=== PATIENT | female | born 1980 | race Hispanic/Latino ===

== ENCOUNTER 2017-09-24 08:40 | Emergency (ER) | payer MEDICAID, OTHER ==
[~2017-09-24 08:40] MED LIST: BLOO-733 MC; BLOO1EAC70 MC; INSU100I4 SQ; ISOP1TOW MC; METF500T7 PO; METO10TA41 PO; PANT40TA PO; [UNRECOGNIZED DRUG - CODE] MC; [UNRECOGNIZED DRUG - CODE] MC
[2017-09-24 09:12] LABS: BASOPHILS % (AUTO) 0.5 % (0.0-5.0); EOSINOPHILS % (AUTO) 0.1 % (0.0-8.0); HEMATOCRIT 39.9 % (36-48); LYMPHOCYTES % (AUTO) 24.4 % (21.0-51.0); MEAN CORPUSCULAR HEMOGLOBIN 30.7 pg (27.0-33.0); MEAN CORPUSCULAR HGB CONC 35.5 g/dL (32.0-36.0); MEAN CORPUSCULAR VOLUME 86.7 fL (79-99); MONOCYTES % (AUTO) 8.7 % (3.0-13.0); NEUTROPHILS % (AUTO) 66.3 % (40.0-77.0); PLATELET COUNT (AUTO) 259 K/uL (130-400); RED CELL DISTRIBUTION WIDTH 12.1 % (11.0-15.5); WHITE BLOOD COUNT (AUTO) 8.8 K/uL (4.8-10.8)
[2017-09-24 09:29] LABS: CREATININE 0.5 mg/dL (0.5-1.5); POTASSIUM 3.3 mmol/L (3.5-5.1)
[2017-09-24 09:34] LABS: ALBUMIN 3.7 g/dL (3.5-5.0); BILIRUBIN,DIRECT 0.1 mg/dL (0.0-0.3); BILIRUBIN,TOTAL 0.5 mg/dL (0.2-1.0); TOTAL PROTEIN, SERUM 7.3 g/dL (6.0-8.3)
[2017-09-24 09:40] LABS: ABG BASE EXCESS 2.2 mmol/L (-2.0-3.0); ABG HCO3 26.3 mmol/L (21.0-28.0); ABG OXYGEN SATURATION 92.6 % (95.0-99.0); ABG PCO2 40 mmHg (32-45)
[2017-09-24] MEDS ORDERED: ONDANSETRON HCL MDV 20ML 2 MG/ML VIAL ONE (09:41)
[2017-09-24] MEDS ORDERED: PROMETHAZINE HCL 25 MG/ML 1ML AMPULE IM ONE (10:32)
[2017-09-24 11:23] LABS: APPEARANCE,URINE Clear (CLEAR); BILIRUBIN,URINE Negative (NEGATIVE); COLOR,URINE Yellow (YELLOW); GLUCOSE, URINE (UA) >=1000 mg/dL (NEGATIVE); KETONES,URINE 40 mg/dL (NEGATIVE); LEUKOCYTE ESTERASE ,URINE Trace (NEGATIVE); NITRATE,URINE Negative (NEGATIVE); OCCULT BLOOD,URINE Negative (NEGATIVE); PROTEIN,URINE Negative (NEGATIVE); UROBILINOGEN,URINE 0.2 mg/dL (0.2-1.0)
[2017-09-24 11:30] LABS: AMPHET/METH SCREEN,URINE NEGATIVE (NEGATIVE); BARBITURATE SCREEN, URINE NEGATIVE (NEGATIVE); BENZODIAZEPINES SCREEN,URINE NEGATIVE (NEGATIVE); CANNABINOID SCREEN,URINE NEGATIVE (NEGATIVE); COCAINE SCREEN,URINE NEGATIVE (NEGATIVE); OPIATE SCREEN,URINE NEGATIVE (NEGATIVE); PHENCYCLIDINE SCREEN,URINE NEGATIVE (NEGATIVE)
[2017-09-24 11:43] LABS: BACTERIA,URINE Rare /HPF (None Seen); RBC,URINE 0-1 /HPF (0-1); SQUAMOUS EPITHELIAL CELL,UR Few /HPF (0-2); WBC,URINE 0-1 /HPF (0-1)
== END 2017-09-24 11:56 | disposition home or self-care (01) ==
LOC: EDH 08:40
DX: R10.13 Epigastric pain (principal); R11.2 Nausea with vomiting, unspecified
CPT/HCPCS: 36415; 36600; 74176; 80048; 80076; 80305; 81001; 82330; 82435; 82803; 82947; 83605; 83690; 84132; 84295; 85018; 85025; 93005; 96361; 96374; 96375; 99285; J2550

== ENCOUNTER 2017-11-16 12:05 | Emergency (ER) | payer MEDICAID, OTHER ==
[2017-11-16] MEDS ORDERED: SODIUM CHLORIDE 0.9% 1000ML 1,000 ML IV ONE (12:37)
[2017-11-16] MEDS ORDERED: ONDANSETRON HCL 4 MG/2 ML VIAL ONE (12:37)
[2017-11-16 12:46] LABS: BASOPHILS % (AUTO) 0.4 % (0.0-5.0); EOSINOPHILS % (AUTO) 0.3 % (0.0-8.0); HEMATOCRIT 39.9 % (36-48); LYMPHOCYTES % (AUTO) 26.1 % (21.0-51.0); MEAN CORPUSCULAR HEMOGLOBIN 30.7 pg (27.0-33.0); MEAN CORPUSCULAR HGB CONC 35.9 g/dL (32.0-36.0); MEAN CORPUSCULAR VOLUME 85.6 fL (79-99); MONOCYTES % (AUTO) 6.4 % (3.0-13.0); NEUTROPHILS % (AUTO) 66.8 % (40.0-77.0); PLATELET COUNT (AUTO) 310 K/uL (130-400); RED BLOOD CELL COUNT(AUTO) 4.66 MIL/uL (4.00-5.50); RED CELL DISTRIBUTION WIDTH 12.6 % (11.0-15.5); WHITE BLOOD COUNT (AUTO) 9.4 K/uL (4.8-10.8)
[2017-11-16 13:05] LABS: CREATININE 0.4 mg/dL (0.5-1.5); POTASSIUM 3.5 mmol/L (3.5-5.1)
[2017-11-16] MEDS ORDERED: KETOROLAC TROMETHAMINE 30MG/ML ONE (13:10)
[2017-11-16 13:14] LABS: ALBUMIN 4.3 g/dL (3.5-5.0); BILIRUBIN,DIRECT 0.1 mg/dL (0.0-0.3); BILIRUBIN,TOTAL 0.6 mg/dL (0.2-1.0); TOTAL PROTEIN, SERUM 7.6 g/dL (6.0-8.3)
[2017-11-16] MEDS ORDERED: DICYCLOMINE HCL 10 MG/ML 2ML AMP IM ONE (13:43)
== END 2017-11-16 15:06 | disposition home or self-care (01) ==
LOC: EDH 12:05
DX: K52.9 Noninfective gastroenteritis and colitis, unspecified (principal); E86.0 Dehydration; M25.50 Pain in unspecified joint; E11.9 Type 2 diabetes mellitus without complications; Z90.49 Acquired absence of other specified parts of digestive tract; Z90.710 Acquired absence of both cervix and uterus; Z79.899 Other long term (current) drug therapy
CPT/HCPCS: 36415; 74176; 80048; 80076; 82550; 83690; 85025; 93005; 96361; 96372; 96374; 96375; 99285; J0500; J1885; J2405; J7030

== ENCOUNTER 2019-11-11 10:27 | Inpatient (IN) | payer MEDICAID ==
[~2019-11-11] VITALS: Ht 152.4 cm; Wt 63.5 kg
[~2019-11-11 10:27] MED LIST changes: +METF-910 PO; -METF500T7 PO
[2019-11-11] MEDS ORDERED: ACETAMINOPHEN EXTRA STRENGTH 500 MG TABLET ONE ×2 (11:23→17:16)
[2019-11-11] MEDS ORDERED: ONDANSETRON HCL 4 MG/2 ML VIAL ONE (12:26)
[2019-11-11 12:59] LABS: BASOPHILS % (AUTO) 0.2 % (0.0-5.0); EOSINOPHILS % (AUTO) 0.1 % (0.0-8.0); HEMATOCRIT 31.4 % (36-48); LYMPHOCYTES % (AUTO) 6.2 % (21.0-51.0); MEAN CORPUSCULAR HEMOGLOBIN 28.5 pg (27.0-33.0); MEAN CORPUSCULAR HGB CONC 32.5 g/dL (32.0-36.0); MEAN CORPUSCULAR VOLUME 87.7 fL (79-99); MONOCYTES % (AUTO) 5.9 % (3.0-13.0); NEUTROPHILS % (AUTO) 86.7 % (40.0-77.0); PLATELET COUNT (AUTO) 497 K/uL (130-400); RED BLOOD CELL COUNT(AUTO) 3.58 MIL/uL (4.00-5.50); RED CELL DISTRIBUTION WIDTH 12.5 % (11.0-15.5); WHITE BLOOD COUNT (AUTO) 19.6 K/uL (4.8-10.8)
[2019-11-11 13:26] LABS: ABG OXYGEN SATURATION 47.3 % (95.0-99.0); BASE EXCESS,VENOUS BLOOD GAS -9.5 (-2.0-3.0); HCO3,VENOUS BLOOD GAS 17.7 (21.0-28.0); PCO2,VENOUS BLOOD GAS 43 (32-45); PH,VENOUS BLOOD GAS 7.229 (7.350-7.450)
[2019-11-11 13:32] LABS: ALBUMIN 3.2 g/dL (3.5-5.0); BILIRUBIN,DIRECT 0.1 mg/dL (0.0-0.3); BILIRUBIN,TOTAL 0.3 mg/dL (0.2-1.0); CREATININE 1.7 mg/dL (0.5-1.5); POTASSIUM 3.7 mmol/L (3.5-5.1); TOTAL PROTEIN, SERUM 8.8 g/dL (6.0-8.3)
[2019-11-11 13:52] LABS: APPEARANCE,URINE TURBID (CLEAR); BILIRUBIN,URINE NEGATIVE (NEGATIVE); COLOR,URINE YELLOW (YELLOW); GLUCOSE, URINE (UA) >=1000 mg/dL (NEGATIVE); KETONES,URINE 5 mg/dL (NEGATIVE); LEUKOCYTE ESTERASE ,URINE MODERATE (NEGATIVE); NITRATE,URINE NEGATIVE (NEGATIVE); OCCULT BLOOD,URINE SMALL (NEGATIVE); PH,URINE 5.5 (5.0-8.0); PROTEIN,URINE 30 mg/dL (NEGATIVE); UROBILINOGEN,URINE 0.2 mg/dL (0.2-1.0)
[2019-11-11] MEDS ORDERED: INSULIN HUMULIN R 100 UNIT/ML 3ML ONE ×2 (13:52→15:16)
[2019-11-11 14:02] LABS: AMPHET/METH SCREEN,URINE NEGATIVE (NEGATIVE); BARBITURATE SCREEN, URINE NEGATIVE (NEGATIVE); BENZODIAZEPINES SCREEN,URINE POSITIVE (NEGATIVE); CANNABINOID SCREEN,URINE NEGATIVE (NEGATIVE); COCAINE SCREEN,URINE NEGATIVE (NEGATIVE); OPIATE SCREEN,URINE POSITIVE (NEGATIVE); PHENCYCLIDINE SCREEN,URINE NEGATIVE (NEGATIVE)
[2019-11-11 14:21] LABS: BACTERIA,URINE Many /HPF (None Seen); WBC,URINE TNTC /HPF (0-1)
[2019-11-11 14:22] LABS: SQUAMOUS EPITHELIAL CELL,UR Rare /HPF (0-2); TRANSITIONAL EPI CELLS,URINE Few /HPF (None Seen)
[2019-11-11] MEDS ORDERED: CEFTRIAXONE SODIUM 1 GM ONE (14:25)
[2019-11-11] MEDS ORDERED: SODIUM CHLORIDE 0.9% 1000ML 1,000 ML IV SCH (14:31)
[2019-11-11] MEDS: ZOSYN 3.375GM+NS 50ML 50 ML IV SCH ×2 (15:00→23:50)
[2019-11-11] MEDS ORDERED: SODIUM CHLORIDE 0.9% 100 ML IV ONE (15:14)
[2019-11-11] MEDS ORDERED: NS-20 MEQ KCL 1000ML 1,000 ML IV ONE (15:41)
[2019-11-11 15:44] LABS: CHOLESTEROL 139 mg/dL (<200); HDL CHOLESTEROL 28 mg/dL (35-85); LDL DIRECT 83 mg/dL (0-99); TRIGLYCERIDES 167 mg/dL (30-200)
[2019-11-11] MEDS ORDERED: HYDROCODONE/ACETAMINOPHEN 5/325 MG TAB ONE (15:53)
[2019-11-11] MEDS ORDERED: PHARMACY COMMUNICATION MISC SCH (16:00)
[2019-11-11 16:24] LABS: CREATININE 1.7 mg/dL (0.5-1.5); MAGNESIUM 2.3 mg/dL (1.80-2.40); POTASSIUM 3.9 mmol/L (3.5-5.1)
[2019-11-11] MEDS ORDERED: ZOSYN 3.375GM+NS 50ML 50 ML IV ONE ×2 (16:36→23:49)
[2019-11-11] MEDS ORDERED: INSULIN REGULAR, HUMAN 3ML 100 UNIT in SODIUM CHLORIDE 0.9% 99 ML IV PRN ×2 (16:45)
[2019-11-11 17:20] LABS: CREATININE 1.4 mg/dL (0.5-1.5); POTASSIUM 3.2 mmol/L (3.5-5.1)
[2019-11-11 17:23] LABS: HEMOGLOBIN A1C 11.2 % (4.0-6.0)
[2019-11-11] MEDS ORDERED: POTASSIUM CHLORIDE 20 MEQ ERTAB PO SCH (18:15)
[2019-11-11 18:22] LABS: THYROID STIMULATING HORMONE 0.58 uIU/mL (0.36-3.74)
[2019-11-11] MEDS: IPRATROPIUM/ALBUTEROL SULFATE 3 ML SOLUTION IH SCH ×2 (18:39→22:00)
[2019-11-11] MEDS: SODIUM CHLORIDE 0.9% 1000ML 1,000 ML IV SCH ×2 (19:31→22:00)
[2019-11-11 20:00] VITALS: BP 96/54
[2019-11-11] MEDS ORDERED: KETOROLAC TROMETHAMINE 15MG/ML ONE (20:42)
[2019-11-11 20:55] LABS: CREATININE 0.9 mg/dL (0.5-1.5); MAGNESIUM 1.9 mg/dL (1.80-2.40); POTASSIUM 5.9 mmol/L (3.5-5.1)
[2019-11-11 21:00] VITALS: BP 113/53
[2019-11-11 22:00] VITALS: BP 89/49
[2019-11-11] MEDS: INSULIN HUMULIN R 100 UNIT/ML 3ML IV SCH (22:00)
[2019-11-11 23:00] VITALS: BP 110/50
[2019-11-12] VITALS (22 sets, daily range): BP systolic 75–145; BP diastolic 38–87
[2019-11-12] MEDS: SODIUM CHLORIDE 0.9% 1000ML 1,000 ML IV SCH ×5 (00:31→20:47)
[2019-11-12] MEDS ORDERED: HYDROCODONE/ACETAMINOPHEN 5/325 MG TAB ONE (00:35)
[2019-11-12] MEDS: HYDROCODONE/ACETAMINOPHEN 5/325 MG TAB PO PRN ×3 (00:36→09:50)
[2019-11-12] MEDS: IPRATROPIUM/ALBUTEROL SULFATE 3 ML SOLUTION IH SCH ×3 (01:49→10:12)
[2019-11-12] MEDS ORDERED: DEXTROSE 5 %-0.45 % NACL 1,000 ML IV ONE (02:48)
--- NOTE | 2019-11-12 02:50 | NUR ---
ADMISSION/ASSESSMENT PT RECEIVED TO ROOM 1B WITH DKA AND UTI. PT MOANING REQUESTING MORE ANALGESICS, SEE EDIVINA FOR MED GIVEN. IV FLUIDS INFUSING WITHOUT DIFFICULTY. ASSESSMENT COMPLETED, SEE FLOW SHEET.
--- NOTE | 2019-11-12 03:30 | NUR ---
TEMP TEMP 102.2. COLD PACKS APPLIED. IMPORTANCE OF KEEPING COLD PACKS IN PLACE. PT VERBALIZED UNDERSTANDING BUT REMOVED COLD PACKS. STRESSED IMPORTANCE OF KEEPING COLD PACKS IN PLACE, AGAIN PT REMOVED COLD PACKS.
[2019-11-12] MEDS ORDERED: KETOROLAC TROMETHAMINE 15MG/ML IV PRN (04:30)
[2019-11-12] MEDS: ACETAMINOPHEN 325 MG TAB PO PRN ×2 (05:22→13:49)
[2019-11-12] MEDS: ZOSYN 3.375GM+NS 50ML 50 ML IV SCH ×3 (06:05→23:30)
[2019-11-12] MEDS: DEXTROSE 5 %-0.45 % NACL 1,000 ML IV PRN ×2 (06:12→20:52)
[2019-11-12 06:28] LABS: MAGNESIUM 1.9 mg/dL (1.80-2.40); POTASSIUM 3.4 mmol/L (3.5-5.1)
--- NOTE | 2019-11-12 06:50 | NUR ---
DR ALMA MARQUEZ CALLED MADE AWARE OF K LEVEL 3.5 BLOOD SUGAR IN 300'S. NO NEW ORDERS RECEIVED
--- NOTE | 2019-11-12 07:22 | NUR ---
REPORT REPORT GIVEN TO STALIN ST
[2019-11-12] MEDS ORDERED: POTASSIUM CHLORIDE 20 MEQ ERTAB PO SCH (08:15)
[2019-11-12] MEDS ORDERED: ONDANSETRON HCL 4 MG/2 ML VIAL ONE (08:17)
[2019-11-12] MEDS: FAMOTIDINE/PF 20 MG/2 ML VIAL IV SCH (08:21)
[2019-11-12] MEDS: DULOXETINE HCL 30 MG CAP PO SCH (08:59)
[2019-11-12] MEDS: PREGABALIN 25 MG CAP PO SCH ×3 (08:59→21:00)
[2019-11-12] MEDS: LIDOCAINE 5% TOPICAL PATCH TP SCH (09:00)
[2019-11-12] MEDS ORDERED: ENOXAPARIN SODIUM 30 MG/0.3 ML SQ SCH (09:00)
[2019-11-12 09:02] LABS: BASOPHILS % (AUTO) 0.2 % (0.0-5.0); LYMPHOCYTES % (AUTO) 7.3 % (21.0-51.0); MEAN CORPUSCULAR HEMOGLOBIN 28.7 pg (27.0-33.0); MEAN CORPUSCULAR HGB CONC 32.4 g/dL (32.0-36.0); MEAN CORPUSCULAR VOLUME 88.7 fL (79-99); MONOCYTES % (AUTO) 6.9 % (3.0-13.0); NEUTROPHILS % (AUTO) 84.7 % (40.0-77.0); PLATELET COUNT (AUTO) 473 K/uL (130-400); RED BLOOD CELL COUNT(AUTO) 2.82 MIL/uL (4.00-5.50); RED CELL DISTRIBUTION WIDTH 12.6 % (11.0-15.5); WHITE BLOOD COUNT (AUTO) 17.1 K/uL (4.8-10.8)
[2019-11-12] MEDS: INSULIN HUMULIN R 100 UNIT/ML 3ML IV SCH (13:49)
--- NOTE | 2019-11-12 14:07 | NUR ---
DC PLAN VISITED WITH PATIENT. PATIENT LIVES WITH CHILDREN. NOT ABLE TO COMPLETE IA PATIENT SAID THEY WERE NAUSEAS AND WANTED NURSE. Addendum: 11/12/19 at 1409 by JUSTUS SEGUNDO RN CM Amended: Links added.
[2019-11-12] MEDS: ONDANSETRON HCL 4 MG/2 ML VIAL IVP PRN (14:39)
[2019-11-12 16:59] LABS: CREATININE 0.8 mg/dL (0.5-1.5); POTASSIUM 3.2 mmol/L (3.5-5.1)
[2019-11-12] MEDS: POTASSIUM CHLORIDE 10MEQ/100ML 100 ML IV PRN ×2 (19:50→20:43)
[2019-11-12 22:03] LABS: CREATININE 0.7 mg/dL (0.5-1.5); MAGNESIUM 1.7 mg/dL (1.80-2.40); PHOSPHORUS 1.4 mg/dL (2.5-4.9); POTASSIUM 3.8 mmol/L (3.5-5.1)
[2019-11-12] MEDS: INSULIN GLARGINE 100 UNITS/ML 10 ML VIAL SQ SCH (23:30)
[2019-11-13] VITALS (13 sets, daily range): BP systolic 92–151; BP diastolic 54–93
[2019-11-13] MEDS: SODIUM CHLORIDE 0.9% 1000ML 1,000 ML IV SCH (01:31)
[2019-11-13] MEDS: HYDROCODONE/ACETAMINOPHEN 5/325 MG TAB PO PRN ×2 (03:46→22:14)
[2019-11-13] MEDS: ONDANSETRON HCL 4 MG/2 ML VIAL IVP PRN ×4 (03:46→22:00)
[2019-11-13 05:25] LABS: BASOPHILS % (AUTO) 0.2 % (0.0-5.0); EOSINOPHILS % (AUTO) 0.6 % (0.0-8.0); HEMATOCRIT 21.6 % (36-48); LYMPHOCYTES % (AUTO) 12.6 % (21.0-51.0); MEAN CORPUSCULAR HEMOGLOBIN 28.3 pg (27.0-33.0); MEAN CORPUSCULAR HGB CONC 31.9 g/dL (32.0-36.0); MEAN CORPUSCULAR VOLUME 88.5 fL (79-99); MONOCYTES % (AUTO) 8.6 % (3.0-13.0); NEUTROPHILS % (AUTO) 76.7 % (40.0-77.0); PLATELET COUNT (AUTO) 381 K/uL (130-400); RED BLOOD CELL COUNT(AUTO) 2.44 MIL/uL (4.00-5.50); RED CELL DISTRIBUTION WIDTH 12.8 % (11.0-15.5); WHITE BLOOD COUNT (AUTO) 13.6 K/uL (4.8-10.8)
[2019-11-13 05:45] LABS: CREATININE 0.6 mg/dL (0.5-1.5); MAGNESIUM 1.6 mg/dL (1.80-2.40); PHOSPHORUS 1.6 mg/dL (2.5-4.9)
[2019-11-13] MEDS ORDERED: MAGNESIUM 2GM PREMIX 50ML 50 ML IV ONE (06:14)
[2019-11-13] MEDS ORDERED: MAGNESIUM 2GM PREMIX 50ML 50 ML IV PRN (06:15)
[2019-11-13] MEDS ORDERED: LIDOCAINE HCL-MPF 1% 2ML VIAL IV PRN (06:45)
[2019-11-13] MEDS ORDERED: POTASSIUM CHLORIDE 20 MEQ ERTAB PO PRN (06:45)
[2019-11-13] MEDS ORDERED: POTASSIUM CHLORIDE 20MEQ/100ML 100 ML IV PRN (06:45)
[2019-11-13] MEDS ORDERED: POTASSIUM CHLORIDE 10% ELIXIR 20 MEQ/15 ML UDCUP PO PRN (06:45)
[2019-11-13] MEDS ORDERED: MAGNESIUM 2GM PREMIX 50ML 50 ML IV SCH (07:30)
[2019-11-13] MEDS ORDERED: POTASSIUM CHLORIDE 20 MEQ ERTAB PO SCH ×2 (07:30→11:30)
[2019-11-13] MEDS: INSULIN LISPRO 100 UNIT/ML 3ML SQ SCH ×7 (07:30→21:00)
[2019-11-13] MEDS: ZOSYN 3.375GM+NS 50ML 50 ML IV SCH ×3 (07:34→22:09)
[2019-11-13 08:09] LABS: HEMATOCRIT 21.8 % (36-48)
[2019-11-13] MEDS ORDERED: COMPOUND IV MISC 1 EACH IVSOLN MISC PRN (08:15)
[2019-11-13 08:21] LABS: % IRON SATURATION 26.1 % (22-44)
[2019-11-13] MEDS: MAGNESIUM OXIDE 400 MG TABLET PO SCH (08:26)
[2019-11-13] MEDS: FAMOTIDINE/PF 20 MG/2 ML VIAL IV SCH (08:27)
[2019-11-13] MEDS: DULOXETINE HCL 30 MG CAP PO SCH (08:27)
[2019-11-13] MEDS: PREGABALIN 25 MG CAP PO SCH ×3 (08:27→22:02)
[2019-11-13] MEDS: NEUTRA-PHOS PACKET 1 EACH PO SCH ×4 (08:27→22:03)
[2019-11-13] MEDS: LIDOCAINE 5% TOPICAL PATCH TP SCH (09:00)
[2019-11-13] MEDS: IRON SUCROSE COMPLEX 300 MG in SODIUM CHLORIDE 0.9% 250 ML IV SCH (09:15)
--- NOTE | 2019-11-13 10:09 | NUR ---
TETE PLAN VISITED WITH PATIENT. THINKING OF LEAVING AMA. PENDING BLOOD TRANSFUSION AND DOWN GRADE TO MED/TELE. TAYE WILL CONTINUE TO FOLLOW. Addendum: 11/13/19 at 1010 by JUSTUS SEGUNDO RN CM Amended: Links added.
--- NOTE | 2019-11-13 10:12 | NUR ---
REceived report from ALMA ROSA Avalos of ICU. STat order for PRBC not started. Called blood bank and per Luba, type and crossmatch still pending. Unit should be ready 30-45 minutes after lab performed. Luba to notify me once unit is ready.
--- NOTE | 2019-11-13 11:04 | NUR ---
Notified by [facility] Blood bank that crossmatch shows antibody and will need to locate a compatible unit. May cause some delay of transfusion.
[2019-11-13] MEDS ORDERED: PROMETHAZINE HCL 25 MG/ML 1ML AMPULE IM SCH (12:00)
[2019-11-13] MEDS ORDERED: SODIUM CHLORIDE 0.9% 250 ML IV ONE (14:07)
--- NOTE | 2019-11-13 14:23 | NUR ---
Per ALMA ROSA Reyes patient will be getting blood transfusion this PM.Will attempt to initiate Physical Therapy Evaluation 11/14/2019. Addendum: 11/13/19 at 1426 by PABLITO GARCIA, PT PT Amended: Links added.
--- NOTE | 2019-11-13 14:30 | NUR ---
Reviewed symptoms of transfusion reaction with patient and instructed to report if symptoms arise. Patient verbalized understanding. Transfusion of PRBC initiated after verifying blood unit and patient with Mario Bourne RN. Patient denies shortness of breath or abdominal pain after transfusion began. Remained with patient first 15 minutes of transfusion. Patient denies shortness of breath or abdominal pain after transfusion began. Will continue to monitor and recheck blood levels post transfusion. Bed low, locked. Call caban within reach.
[2019-11-13] MEDS: INSULIN HUMULIN R 100 UNIT/ML 3ML IV SCH (14:45)
--- NOTE | 2019-11-13 14:47 | NUR ---
NUTRITION EDUCATION YARON provided Diabetes Nutrition Education. RD reviewed materials with Pt. Pt reports she is very sleepy at time of education. RD to follow up for reinforcement. Addendum: 11/13/19 at [address] RD Amended: Links added.
--- NOTE | 2019-11-13 14:55 | NUR ---
RD NOTIFICATION Pt admitted with DKA, UTI. At time of visit, Pt with fatigue. Pt reports ate less than 50% lunch. Pt with nausea, vomiting, diarrhea as per Pt. RD attempt at nutrition education, Pt reports too tired;RD to follow up for education reinforcement. Recommend continue 75gm CC Diet order Recommend Ensure Clear QD RD to follow up with nutrition education. Please notify as additional nutrition concerns arise. Thank you. Addendum: 11/13/19 at [address] RD Amended: Links added.
[2019-11-13 19:31] LABS: HEMATOCRIT 26.7 % (36-48)
[2019-11-13 19:41] LABS: CREATININE 0.6 mg/dL (0.5-1.5); POTASSIUM 3.6 mmol/L (3.5-5.1)
[2019-11-13] MEDS: ATORVASTATIN CALCIUM 20 MG TABLET PO SCH (22:03)
[2019-11-13] MEDS: INSULIN GLARGINE 100 UNITS/ML 10 ML VIAL SQ SCH (22:11)
[2019-11-14 04:00] VITALS: BP 109/74
[2019-11-14 04:28] LABS: BASOPHILS % (AUTO) 0.3 % (0.0-5.0); EOSINOPHILS % (AUTO) 0.8 % (0.0-8.0); HEMATOCRIT 26.9 % (36-48); LYMPHOCYTES % (AUTO) 15.8 % (21.0-51.0); MEAN CORPUSCULAR HEMOGLOBIN 28.2 pg (27.0-33.0); MEAN CORPUSCULAR VOLUME 88.2 fL (79-99); MONOCYTES % (AUTO) 5.2 % (3.0-13.0); NEUTROPHILS % (AUTO) 75.8 % (40.0-77.0); PLATELET COUNT (AUTO) 475 K/uL (130-400); RED BLOOD CELL COUNT(AUTO) 3.05 MIL/uL (4.00-5.50); RED CELL DISTRIBUTION WIDTH 13.1 % (11.0-15.5)
[2019-11-14 04:46] LABS: CREATININE 0.6 mg/dL (0.5-1.5); MAGNESIUM 1.7 mg/dL (1.80-2.40); POTASSIUM 3.7 mmol/L (3.5-5.1)
[2019-11-14] MEDS: ZOSYN 3.375GM+NS 50ML 50 ML IV SCH ×2 (05:05→15:40)
[2019-11-14] MEDS: INSULIN LISPRO 100 UNIT/ML 3ML SQ SCH ×7 (06:39→21:00)
[2019-11-14 08:00] VITALS: BP 112/72
[2019-11-14] MEDS: HYDROCODONE/ACETAMINOPHEN 5/325 MG TAB PO PRN ×2 (08:38→17:58)
[2019-11-14] MEDS: ONDANSETRON HCL 4 MG/2 ML VIAL IVP PRN ×2 (08:40→17:57)
[2019-11-14] MEDS ORDERED: PANTOPRAZOLE SODIUM 80 MG in SODIUM CHLORIDE 0.9% 100 ML IV SCH (09:00)
[2019-11-14] MEDS ORDERED: PANTOPRAZOLE 40 MG/VIAL IVP SCH (09:00)
[2019-11-14] MEDS: FAMOTIDINE/PF 20 MG/2 ML VIAL IV SCH (10:27)
[2019-11-14] MEDS: MAGNESIUM OXIDE 400 MG TABLET PO SCH (10:28)
[2019-11-14] MEDS: PREGABALIN 25 MG CAP PO SCH ×3 (10:28→21:40)
[2019-11-14] MEDS: DULOXETINE HCL 30 MG CAP PO SCH (10:28)
[2019-11-14] MEDS: LIDOCAINE 5% TOPICAL PATCH TP SCH (10:28)
[2019-11-14] MEDS: IRON SUCROSE COMPLEX 300 MG in SODIUM CHLORIDE 0.9% 250 ML IV SCH (10:39)
[2019-11-14] MEDS: NEUTRA-PHOS PACKET 1 EACH PO SCH ×2 (11:00→13:23)
[2019-11-14 11:22] LABS: BASOPHILS % (AUTO) 0.4 % (0.0-5.0); EOSINOPHILS % (AUTO) 0.5 % (0.0-8.0); HEMATOCRIT 31.9 % (36-48); LYMPHOCYTES % (AUTO) 9.7 % (21.0-51.0); MEAN CORPUSCULAR HEMOGLOBIN 28.9 pg (27.0-33.0); MEAN CORPUSCULAR HGB CONC 32.9 g/dL (32.0-36.0); MEAN CORPUSCULAR VOLUME 87.9 fL (79-99); MONOCYTES % (AUTO) 4.4 % (3.0-13.0); NEUTROPHILS % (AUTO) 83.5 % (40.0-77.0); PLATELET COUNT (AUTO) 536 K/uL (130-400); RED BLOOD CELL COUNT(AUTO) 3.63 MIL/uL (4.00-5.50); RED CELL DISTRIBUTION WIDTH 13.1 % (11.0-15.5); WHITE BLOOD COUNT (AUTO) 16.1 K/uL (4.8-10.8)
[2019-11-14 11:27] LABS: CREATININE 0.7 mg/dL (0.5-1.5); POTASSIUM 3.8 mmol/L (3.5-5.1)
[2019-11-14 11:52] LABS: INR 1.07 (0.85-1.15); PROTHROMBIN TIME 11.5 SEC (9.6-11.6)
[2019-11-14 12:00] VITALS: BP 115/69
[2019-11-14] MEDS ORDERED: LOPERAMIDE 1 MG/7.5 ML UDCUP PO PRN (14:00)
[2019-11-14] MEDS: INSULIN HUMULIN R 100 UNIT/ML 3ML IV SCH (14:45)
[2019-11-14 16:00] VITALS: BP 131/83
[2019-11-14] MEDS ORDERED: LINDANE TP SCH (18:45)
[2019-11-14] MEDS: CEFTRIAXONE SODIUM 1 GM IVP SCH (20:07)
[2019-11-14 21:10] VITALS: BP 131/88
[2019-11-14] MEDS: ATORVASTATIN CALCIUM 20 MG TABLET PO SCH (21:40)
[2019-11-14] MEDS: INSULIN GLARGINE 100 UNITS/ML 10 ML VIAL SQ SCH (21:42)
[2019-11-15] VITALS (22 sets, daily range): BP systolic 102–144; BP diastolic 64–103
[2019-11-15] MEDS: CEFTRIAXONE SODIUM 1 GM IVP SCH ×2 (05:51→19:11)
[2019-11-15 06:12] LABS: BASOPHILS % (AUTO) 0.5 % (0.0-5.0); EOSINOPHILS % (AUTO) 0.4 % (0.0-8.0); HEMATOCRIT 30.8 % (36-48); LYMPHOCYTES % (AUTO) 12.5 % (21.0-51.0); MEAN CORPUSCULAR HEMOGLOBIN 27.8 pg (27.0-33.0); MEAN CORPUSCULAR HGB CONC 31.8 g/dL (32.0-36.0); MEAN CORPUSCULAR VOLUME 87.3 fL (79-99); MONOCYTES % (AUTO) 5.2 % (3.0-13.0); NEUTROPHILS % (AUTO) 78.9 % (40.0-77.0); PLATELET COUNT (AUTO) 480 K/uL (130-400); RED BLOOD CELL COUNT(AUTO) 3.53 MIL/uL (4.00-5.50); RED CELL DISTRIBUTION WIDTH 12.9 % (11.0-15.5)
[2019-11-15] MEDS: INSULIN LISPRO 100 UNIT/ML 3ML SQ SCH ×6 (06:17→20:50)
--- NOTE | 2019-11-15 06:40 | NUR ---
PATIENT UPDATE Pt NPO post mn, taken to GI LAb for egd with mac. No complaints of any abd pain overnight. Blood sugars within normal limits. Taken to the GI lab at this time, consent secured, was treated for the head lice last night with the prescribed shampoo.
[2019-11-15 06:43] LABS: CREATININE 0.5 mg/dL (0.5-1.5); MAGNESIUM 1.6 mg/dL (1.80-2.40); POTASSIUM 3.2 mmol/L (3.5-5.1)
[2019-11-15] MEDS ORDERED: PROPOFOL 10 MG/ML 20ML VIAL IV ONE ×2 (08:29→08:40)
[2019-11-15] MEDS: HYDROCODONE/ACETAMINOPHEN 5/325 MG TAB PO PRN ×2 (10:15→17:02)
[2019-11-15] MEDS: DULOXETINE HCL 30 MG CAP PO SCH (10:17)
[2019-11-15] MEDS: MAGNESIUM OXIDE 400 MG TABLET PO SCH (10:17)
[2019-11-15] MEDS: PREGABALIN 25 MG CAP PO SCH ×3 (10:17→20:51)
[2019-11-15] MEDS: ONDANSETRON HCL 4 MG/2 ML VIAL IVP PRN ×2 (10:17→17:00)
[2019-11-15] MEDS: FAMOTIDINE/PF 20 MG/2 ML VIAL IV SCH (10:17)
[2019-11-15] MEDS: LIDOCAINE 5% TOPICAL PATCH TP SCH (10:17)
[2019-11-15] MEDS: IRON SUCROSE COMPLEX 300 MG in SODIUM CHLORIDE 0.9% 250 ML IV SCH (10:35)
[2019-11-15] MEDS: INSULIN HUMULIN R 100 UNIT/ML 3ML IV SCH (14:45)
[2019-11-15] MEDS ORDERED: POTASSIUM CHLORIDE 20MEQ/100ML 100 ML IV PRN ×2 (19:15)
[2019-11-15] MEDS ORDERED: POTASSIUM CHLORIDE 10% ELIXIR 20 MEQ/15 ML UDCUP PO PRN (19:15)
[2019-11-15] MEDS ORDERED: LIDOCAINE HCL-MPF 1% 2ML VIAL IV PRN ×2 (19:15)
[2019-11-15] MEDS: ATORVASTATIN CALCIUM 20 MG TABLET PO SCH (20:52)
[2019-11-15] MEDS: INSULIN GLARGINE 100 UNITS/ML 10 ML VIAL SQ SCH (21:00)
[2019-11-15] MEDS: POTASSIUM CHLORIDE 20 MEQ ERTAB PO PRN ×2 (21:21→23:19)
[2019-11-16] VITALS (7 sets, daily range): BP systolic 126–160; BP diastolic 77–102
[2019-11-16] MEDS: POTASSIUM CHLORIDE 20 MEQ ERTAB PO PRN ×3 (01:06→16:49)
[2019-11-16] MEDS: HYDROCODONE/ACETAMINOPHEN 5/325 MG TAB PO PRN ×4 (01:07→23:48)
[2019-11-16 05:38] LABS: HEMATOCRIT 31.7 % (36-48); MEAN CORPUSCULAR HEMOGLOBIN 28.8 pg (27.0-33.0); MEAN CORPUSCULAR HGB CONC 32.8 g/dL (32.0-36.0); MEAN CORPUSCULAR VOLUME 87.8 fL (79-99); RED BLOOD CELL COUNT(AUTO) 3.61 MIL/uL (4.00-5.50); RED CELL DISTRIBUTION WIDTH 12.6 % (11.0-15.5); WHITE BLOOD COUNT (AUTO) 12.2 K/uL (4.8-10.8)
[2019-11-16 06:06] LABS: CREATININE 0.6 mg/dL (0.5-1.5); MAGNESIUM 3.2 mg/dL (1.80-2.40); POTASSIUM 3.7 mmol/L (3.5-5.1)
[2019-11-16] MEDS: INSULIN LISPRO 100 UNIT/ML 3ML SQ SCH ×7 (06:31→21:00)
[2019-11-16] MEDS: CEFTRIAXONE SODIUM 1 GM IVP SCH ×2 (06:31→18:48)
[2019-11-16] MEDS: ONDANSETRON HCL 4 MG/2 ML VIAL IVP PRN ×2 (07:41→16:23)
[2019-11-16] MEDS: PREGABALIN 25 MG CAP PO SCH ×3 (09:41→21:25)
[2019-11-16] MEDS: FAMOTIDINE/PF 20 MG/2 ML VIAL IV SCH (09:41)
[2019-11-16] MEDS: LIDOCAINE 5% TOPICAL PATCH TP SCH (09:41)
[2019-11-16] MEDS: DULOXETINE HCL 30 MG CAP PO SCH (09:42)
[2019-11-16] MEDS: MAGNESIUM OXIDE 400 MG TABLET PO SCH (09:42)
[2019-11-16] MEDS: IRON SUCROSE COMPLEX 300 MG in SODIUM CHLORIDE 0.9% 250 ML IV SCH (09:42)
--- NOTE | 2019-11-16 11:40 | NUR ---
F/C WAS REMOVED WITH PREVIOUS SHIFT PER MD ORDER. PT DUE TO VOID BY 1230 PM. PT VOIDED AT 1140 AM. NO PAIN OR DISCOMFORT.
[2019-11-16] MEDS: INSULIN HUMULIN R 100 UNIT/ML 3ML IV SCH (14:45)
[2019-11-16] MEDS ORDERED: INSULIN GLARGINE 100 UNITS/ML 10 ML VIAL SQ SCH ×2 (21:00)
[2019-11-16] MEDS: ATORVASTATIN CALCIUM 20 MG TABLET PO SCH (21:25)
--- NOTE | 2019-11-16 23:58 | NUR ---
PAIN Medicated for pain,c/o pain all over her body.
--- NOTE | 2019-11-17 00:58 | NUR ---
MED EFFECT Pt resting quietly in bed,eyes closed.
[2019-11-17] MEDS: ONDANSETRON HCL 4 MG/2 ML VIAL IVP PRN (04:02)
--- NOTE | 2019-11-17 04:02 | NUR ---
NAUSEA Medicated with ZOFRAN for c/o of nausea.
[2019-11-17 04:21] VITALS: BP 131/83
[2019-11-17] MEDS: CEFTRIAXONE SODIUM 1 GM IVP SCH (04:55)
--- NOTE | 2019-11-17 05:02 | NUR ---
MED EFFECT Pt verbalized relief.
[2019-11-17] MEDS: INSULIN LISPRO 100 UNIT/ML 3ML SQ SCH ×4 (06:18→11:50)
[2019-11-17 07:25] VITALS: BP 139/87
[2019-11-17] MEDS: HYDROCODONE/ACETAMINOPHEN 5/325 MG TAB PO PRN (07:28)
[2019-11-17] MEDS: LIDOCAINE 5% TOPICAL PATCH TP SCH (08:57)
[2019-11-17] MEDS: MAGNESIUM OXIDE 400 MG TABLET PO SCH (08:59)
[2019-11-17] MEDS: FAMOTIDINE/PF 20 MG/2 ML VIAL IV SCH (08:59)
[2019-11-17] MEDS: PREGABALIN 25 MG CAP PO SCH (08:59)
[2019-11-17] MEDS: DULOXETINE HCL 30 MG CAP PO SCH (08:59)
[2019-11-17] MEDS: IRON SUCROSE COMPLEX 300 MG in SODIUM CHLORIDE 0.9% 250 ML IV SCH (09:04)
[2019-11-17 09:44] LABS: BASOPHILS % (AUTO) 0.1 % (0.0-5.0); EOSINOPHILS % (AUTO) 0.2 % (0.0-8.0); HEMATOCRIT 32.9 % (36-48); LYMPHOCYTES % (AUTO) 10.2 % (21.0-51.0); MEAN CORPUSCULAR HEMOGLOBIN 28.8 pg (27.0-33.0); MEAN CORPUSCULAR HGB CONC 32.2 g/dL (32.0-36.0); MEAN CORPUSCULAR VOLUME 89.4 fL (79-99); MONOCYTES % (AUTO) 5.5 % (3.0-13.0); NEUTROPHILS % (AUTO) 82.9 % (40.0-77.0); PLATELET COUNT (AUTO) 396 K/uL (130-400); RED BLOOD CELL COUNT(AUTO) 3.68 MIL/uL (4.00-5.50); RED CELL DISTRIBUTION WIDTH 12.7 % (11.0-15.5); WHITE BLOOD COUNT (AUTO) 13.4 K/uL (4.8-10.8)
[2019-11-17] MEDS ORDERED: ENOXAPARIN SODIUM 30 MG/0.3 ML SQ SCH (10:30)
[2019-11-17 10:49] VITALS: BP 143/93
[2019-11-17] MEDS ORDERED: INSLAN SQ (11:44)
[2019-11-17] MEDS ORDERED: PANT40TA PO (12:30)
--- NOTE | 2019-11-17 14:48 | NUR ---
DISCHARGE INSTRUCTIONS 1330 - PATIENT GIVEN DISCHARGE INSTRUCTIONS AND VERBALIZED UNDER STANDING UNDERSTANDING, REVIEWED MEDICATIONS AND FOLLOW-UP APPOINTMENT , PATIENT GIVEN EDUCATION ON INSULIN INJECTIONS , INSULIN, DIET AND FOOT CARE. IV REMOVED WITH CATHETER INTACT AND SITE DRESSED. PATIENT SHOWERED AND THEN CALL FOR HER RIDE , NO QUESTIONS OR CONCERN VOICED AT THIS TIME . 1448 PATIENT TAKEN BY WHEELCHAIR TO LOBBY TO MET FAMILY TO LEAVE FOR HOME
== END 2019-11-17 14:55 | disposition home or self-care (01) | DRG 720 ==
LOC: EDH 10:27 → EDHIP 10:28 → DAHIP 11-12 03:14 → 2BH 11-12 18:47 → 3AH 11-13 10:25
PROVIDERS: ADMIT Internal Medicine; ATTEND Internal Medicine
PROC: 30230N1 Transfusion of Nonautologous Red Blood Cells into Peripheral Vein, Open Approach (ICD-10-PCS; principal; 2019-11-13)
PROC: 0DB68ZX Excision of Stomach, Via Natural or Artificial Opening Endoscopic, Diagnostic (ICD-10-PCS; 2019-11-15)
DX: A41.51 Sepsis due to Escherichia coli [E. coli] (principal); G92 Toxic encephalopathy; N17.9 Acute kidney failure, unspecified; K25.4 Chronic or unspecified gastric ulcer with hemorrhage; E11.10 Type 2 diabetes mellitus with ketoacidosis without coma; D62 Acute posthemorrhagic anemia; E83.39 Other disorders of phosphorus metabolism; E86.0 Dehydration; E11.42 Type 2 diabetes mellitus with diabetic polyneuropathy; D50.9 Iron deficiency anemia, unspecified; N10 Acute pyelonephritis; G89.4 Chronic pain syndrome; E66.9 Obesity, unspecified; E78.5 Hyperlipidemia, unspecified; E83.42 Hypomagnesemia; E86.1 Hypovolemia; E87.6 Hypokalemia; I10 Essential (primary) hypertension; N20.0 Calculus of kidney; R29.6 Repeated falls; Z79.899 Other long term (current) drug therapy; Z82.3 Family history of stroke; Z82.49 Family history of ischemic heart disease and other diseases of the circulatory system; Z83.3 Family history of diabetes mellitus; Z85.42 Personal history of malignant neoplasm of other parts of uterus; Z90.49 Acquired absence of other specified parts of digestive tract; Z90.710 Acquired absence of both cervix and uterus; Z88.8 Allergy status to other drugs, medicaments and biological substances; K29.71 Gastritis, unspecified, with bleeding; R65.20 Severe sepsis without septic shock
CPT/HCPCS: 36415; 36430; 36600; 43239; 70450; 71045; 72128; 72131; 73030; 73502; 74176; 76770; 80048; 80061; 80076; 80305; 81001; 82010; 82270; 82607; 82746; 82803; 82948; 83036; 83540; 83550; 83605; 83690; 83735; 83930; 84100; 84145; 84443; 85014; 85018; 85025; 85027; 85610; 86592; 86850; 86870; 86900; 86901; 86905; 86922; 87040; 87077; 87088; 87186; 87507; 87804; 93971; 94640; 94664; 97039; 99291; C9113; G0378; J0696; J1650; J1756; J1815; J1885; J2405; J2543; J2550; J2704; J3475; J3480; J3490; J7030; J7042; P9016

== ENCOUNTER → 2022-10-16 | Outpatient (CLI) | payer MEDICAID ==
[~2022-10-16] MED LIST changes: -BLOO-733 MC; -BLOO1EAC70 MC; +HONEY 1 APPL/ML TUBE TP ONE; +INSLAN SQ; -INSU100I4 SQ; -ISOP1TOW MC; +LIDOCAINE HCL 4% LTA SOL 4 ML VIAL TP ONE; -METF-910 PO; -METO10TA41 PO; -[UNRECOGNIZED DRUG - CODE] MC; -[UNRECOGNIZED DRUG - CODE] MC
== END | disposition home or self-care (01) ==
LOC: WHH 13:42
PROVIDERS: ATTEND Nurse Practitioner Family
DX: E11.622 Type 2 diabetes mellitus with other skin ulcer (principal); L97.822 Non-pressure chronic ulcer of other part of left lower leg with fat layer exposed; G61.0 Guillain-Barre syndrome; I10 Essential (primary) hypertension; I39 Endocarditis and heart valve disorders in diseases classified elsewhere; E66.9 Obesity, unspecified; G89.4 Chronic pain syndrome; F41.9 Anxiety disorder, unspecified; Z68.34 Body mass index [BMI] 34.0-34.9, adult; Z79.899 Other long term (current) drug therapy; Z90.49 Acquired absence of other specified parts of digestive tract; Z85.42 Personal history of malignant neoplasm of other parts of uterus
CPT/HCPCS: 11042; 11045; A4450; A6260

== ENCOUNTER → 2022-10-23 | Outpatient (CLI) | payer MEDICAID ==
[~2022-10-23] MED LIST changes: -HONEY 1 APPL/ML TUBE TP ONE; -LIDOCAINE HCL 4% LTA SOL 4 ML VIAL TP ONE
== END ==
LOC: WHH 11:28
PROVIDERS: ATTEND Nurse Practitioner Family
DX: E11.622 Type 2 diabetes mellitus with other skin ulcer (principal); L97.822 Non-pressure chronic ulcer of other part of left lower leg with fat layer exposed; G61.0 Guillain-Barre syndrome; I10 Essential (primary) hypertension; I39 Endocarditis and heart valve disorders in diseases classified elsewhere; E66.9 Obesity, unspecified; G89.4 Chronic pain syndrome; F41.9 Anxiety disorder, unspecified; Z68.34 Body mass index [BMI] 34.0-34.9, adult; Z79.899 Other long term (current) drug therapy; Z90.49 Acquired absence of other specified parts of digestive tract; Z85.42 Personal history of malignant neoplasm of other parts of uterus
CPT/HCPCS: 99214; A4450

== ENCOUNTER → 2022-11-06 | Outpatient (CLI) | payer MEDICAID ==
[~2022-11-06] MED LIST changes: +LIDOCAINE HCL 4% LTA SOL 4 ML VIAL TP ONE
== END | disposition home or self-care (01) ==
LOC: WHH 10:56
PROVIDERS: ATTEND Nurse Practitioner Family
DX: E11.622 Type 2 diabetes mellitus with other skin ulcer (principal); L97.822 Non-pressure chronic ulcer of other part of left lower leg with fat layer exposed; G61.0 Guillain-Barre syndrome; I10 Essential (primary) hypertension; I39 Endocarditis and heart valve disorders in diseases classified elsewhere; E66.9 Obesity, unspecified; G89.4 Chronic pain syndrome; F41.9 Anxiety disorder, unspecified; Z68.34 Body mass index [BMI] 34.0-34.9, adult; Z79.899 Other long term (current) drug therapy; Z90.49 Acquired absence of other specified parts of digestive tract; Z85.42 Personal history of malignant neoplasm of other parts of uterus
CPT/HCPCS: 11042; 11045

== ENCOUNTER → 2022-11-13 | Outpatient (CLI) | payer MEDICAID | END | disposition home or self-care (01) | LOC: WHH 10:02 | PROVIDERS: ATTEND Nurse Practitioner Family | DX: E11.622 Type 2 diabetes mellitus with other skin ulcer (principal); L97.822 Non-pressure chronic ulcer of other part of left lower leg with fat layer exposed; G61.0 Guillain-Barre syndrome; I10 Essential (primary) hypertension; I39 Endocarditis and heart valve disorders in diseases classified elsewhere; E66.9 Obesity, unspecified; G89.4 Chronic pain syndrome; F41.9 Anxiety disorder, unspecified; Z68.34 Body mass index [BMI] 34.0-34.9, adult; Z79.899 Other long term (current) drug therapy; Z90.49 Acquired absence of other specified parts of digestive tract; Z85.42 Personal history of malignant neoplasm of other parts of uterus | CPT/HCPCS: 99214; A6209 ==

== ENCOUNTER → 2022-12-18 | Outpatient (CLI) | payer MEDICAID ==
[~2022-12-18] MED LIST changes: +LIDOCAINE HCL 4% LTA SOL 4 ML VIAL ONE; -LIDOCAINE HCL 4% LTA SOL 4 ML VIAL TP ONE
== END | disposition home or self-care (01) ==
LOC: WHH 11:16
PROVIDERS: ATTEND Nurse Practitioner Family
DX: E11.622 Type 2 diabetes mellitus with other skin ulcer (principal); L97.822 Non-pressure chronic ulcer of other part of left lower leg with fat layer exposed; G61.0 Guillain-Barre syndrome; I10 Essential (primary) hypertension; I39 Endocarditis and heart valve disorders in diseases classified elsewhere; E66.9 Obesity, unspecified; G89.4 Chronic pain syndrome; F41.9 Anxiety disorder, unspecified; Z68.34 Body mass index [BMI] 34.0-34.9, adult; Z79.899 Other long term (current) drug therapy; Z90.49 Acquired absence of other specified parts of digestive tract; Z85.42 Personal history of malignant neoplasm of other parts of uterus
CPT/HCPCS: 99214; A6209

== ENCOUNTER → 2022-12-25 | Outpatient (CLI) | payer MEDICAID ==
[~2022-12-25] MED LIST changes: -LIDOCAINE HCL 4% LTA SOL 4 ML VIAL ONE; +LIDOCAINE HCL 4% LTA SOL 4 ML VIAL TP ONE
== END | disposition home or self-care (01) ==
LOC: WHH 11:05
PROVIDERS: ATTEND Nurse Practitioner Family
DX: E11.622 Type 2 diabetes mellitus with other skin ulcer (principal); L97.822 Non-pressure chronic ulcer of other part of left lower leg with fat layer exposed; I10 Essential (primary) hypertension; I87.8 Other specified disorders of veins; I39 Endocarditis and heart valve disorders in diseases classified elsewhere; E66.9 Obesity, unspecified; G61.0 Guillain-Barre syndrome; G89.4 Chronic pain syndrome; F41.9 Anxiety disorder, unspecified; Z68.34 Body mass index [BMI] 34.0-34.9, adult; Z90.710 Acquired absence of both cervix and uterus; Z90.49 Acquired absence of other specified parts of digestive tract; Z85.42 Personal history of malignant neoplasm of other parts of uterus; Z79.899 Other long term (current) drug therapy
CPT/HCPCS: 99214; A6209; A4450

== ENCOUNTER → 2023-01-01 | Outpatient (CLI) | payer MEDICAID | END | disposition home or self-care (01) | LOC: WHH 11:16 | PROVIDERS: ATTEND Nurse Practitioner Family | DX: E11.622 Type 2 diabetes mellitus with other skin ulcer (principal); L97.822 Non-pressure chronic ulcer of other part of left lower leg with fat layer exposed; I87.8 Other specified disorders of veins; I10 Essential (primary) hypertension; I39 Endocarditis and heart valve disorders in diseases classified elsewhere; G61.0 Guillain-Barre syndrome; F41.9 Anxiety disorder, unspecified; E66.9 Obesity, unspecified; Z68.34 Body mass index [BMI] 34.0-34.9, adult; Z90.49 Acquired absence of other specified parts of digestive tract; Z85.42 Personal history of malignant neoplasm of other parts of uterus; Z90.710 Acquired absence of both cervix and uterus; Z79.899 Other long term (current) drug therapy | CPT/HCPCS: 17250; A6209 ==

== ENCOUNTER → 2023-01-22 | Outpatient (CLI) | payer MEDICAID ==
[~2023-01-22] MED LIST changes: -LIDOCAINE HCL 4% LTA SOL 4 ML VIAL TP ONE
== END | disposition home or self-care (01) ==
LOC: WHH 11:12
PROVIDERS: ATTEND Nurse Practitioner Family
DX: E11.622 Type 2 diabetes mellitus with other skin ulcer (principal); L97.822 Non-pressure chronic ulcer of other part of left lower leg with fat layer exposed; I87.8 Other specified disorders of veins; I10 Essential (primary) hypertension; I39 Endocarditis and heart valve disorders in diseases classified elsewhere; G61.0 Guillain-Barre syndrome; E66.9 Obesity, unspecified; F41.9 Anxiety disorder, unspecified; Z68.34 Body mass index [BMI] 34.0-34.9, adult; Z85.42 Personal history of malignant neoplasm of other parts of uterus; Z90.710 Acquired absence of both cervix and uterus; Z90.49 Acquired absence of other specified parts of digestive tract; Z79.899 Other long term (current) drug therapy
CPT/HCPCS: 99214; A6209

== ENCOUNTER → 2023-01-30 | Outpatient (CLI) | payer MEDICAID | END | disposition home or self-care (01) | LOC: WHH 11:08 | PROVIDERS: ATTEND Nurse Practitioner Family | DX: E11.622 Type 2 diabetes mellitus with other skin ulcer (principal); L97.822 Non-pressure chronic ulcer of other part of left lower leg with fat layer exposed; I87.8 Other specified disorders of veins; I10 Essential (primary) hypertension; I39 Endocarditis and heart valve disorders in diseases classified elsewhere; G61.0 Guillain-Barre syndrome; E66.9 Obesity, unspecified; F41.9 Anxiety disorder, unspecified; Z68.34 Body mass index [BMI] 34.0-34.9, adult; Z85.42 Personal history of malignant neoplasm of other parts of uterus; Z90.710 Acquired absence of both cervix and uterus; Z90.49 Acquired absence of other specified parts of digestive tract; Z79.899 Other long term (current) drug therapy | CPT/HCPCS: 17250; A6209; A4450 ==

== ENCOUNTER → 2023-04-20 | Outpatient (CLI) | payer MEDICAID ==
[~2023-04-20] MED LIST changes: +ACET-2079 PO; +ALPR0.5T PO; +AMOX500C2 PO; +LEVO750T68 PO; +METO10TA41 PO
== END | disposition home or self-care (01) ==
LOC: WHH 10:36
PROVIDERS: ATTEND Nurse Practitioner Family
DX: E11.622 Type 2 diabetes mellitus with other skin ulcer (principal); L97.822 Non-pressure chronic ulcer of other part of left lower leg with fat layer exposed; I87.8 Other specified disorders of veins; I10 Essential (primary) hypertension; I39 Endocarditis and heart valve disorders in diseases classified elsewhere; G61.0 Guillain-Barre syndrome; E66.9 Obesity, unspecified; F41.9 Anxiety disorder, unspecified; Z68.34 Body mass index [BMI] 34.0-34.9, adult; Z85.42 Personal history of malignant neoplasm of other parts of uterus; Z90.710 Acquired absence of both cervix and uterus; Z90.49 Acquired absence of other specified parts of digestive tract; Z79.899 Other long term (current) drug therapy
CPT/HCPCS: 99214; G0463

== ENCOUNTER → 2023-05-15 | Outpatient (CLI) | payer MEDICAID ==
[~2023-05-15] MED LIST changes: -ACET-2079 PO; -AMOX500C2 PO; -INSLAN SQ; -LEVO750T68 PO; +LIDOCAINE HCL 4% LTA SOL 4 ML VIAL TP ONE; -METO10TA41 PO; -PANT40TA PO
== END | disposition home or self-care (01) ==
LOC: WHH 11:02
PROVIDERS: ATTEND Nurse Practitioner Family
DX: E11.621 Type 2 diabetes mellitus with foot ulcer (principal); L97.512 Non-pressure chronic ulcer of other part of right foot with fat layer exposed; L97.415 Non-pressure chronic ulcer of right heel and midfoot with muscle involvement without evidence of necrosis; G61.0 Guillain-Barre syndrome; I39 Endocarditis and heart valve disorders in diseases classified elsewhere; I10 Essential (primary) hypertension; F41.9 Anxiety disorder, unspecified; E66.9 Obesity, unspecified; Z68.34 Body mass index [BMI] 34.0-34.9, adult; Z85.42 Personal history of malignant neoplasm of other parts of uterus; Z90.710 Acquired absence of both cervix and uterus; Z90.49 Acquired absence of other specified parts of digestive tract; Z79.899 Other long term (current) drug therapy
CPT/HCPCS: 99214; A6248; A6250; A6209; A4450; A6260

== ENCOUNTER → 2023-05-22 | Outpatient (CLI) | payer MEDICAID | END | disposition home or self-care (01) | LOC: WHH 10:01 | PROVIDERS: ATTEND Nurse Practitioner Family | DX: E11.621 Type 2 diabetes mellitus with foot ulcer (principal); L97.512 Non-pressure chronic ulcer of other part of right foot with fat layer exposed; G61.0 Guillain-Barre syndrome; I39 Endocarditis and heart valve disorders in diseases classified elsewhere; I10 Essential (primary) hypertension; F41.9 Anxiety disorder, unspecified; E66.9 Obesity, unspecified; Z68.34 Body mass index [BMI] 34.0-34.9, adult; Z85.42 Personal history of malignant neoplasm of other parts of uterus; Z90.710 Acquired absence of both cervix and uterus; Z90.49 Acquired absence of other specified parts of digestive tract; Z79.899 Other long term (current) drug therapy | CPT/HCPCS: 11042; A6209 ==

== ENCOUNTER → 2023-05-29 | Outpatient (CLI) | payer MEDICAID ==
[~2023-05-29] MED LIST changes: +CEFTRIAXONE 1G VIAL IM ONE
== END | disposition home or self-care (01) ==
LOC: WHH 09:59
PROVIDERS: ATTEND Nurse Practitioner Family
DX: E11.621 Type 2 diabetes mellitus with foot ulcer (principal); L97.512 Non-pressure chronic ulcer of other part of right foot with fat layer exposed; G61.0 Guillain-Barre syndrome; I39 Endocarditis and heart valve disorders in diseases classified elsewhere; I10 Essential (primary) hypertension; F41.9 Anxiety disorder, unspecified; E66.9 Obesity, unspecified; Z68.34 Body mass index [BMI] 34.0-34.9, adult; Z85.42 Personal history of malignant neoplasm of other parts of uterus; Z90.710 Acquired absence of both cervix and uterus; Z90.49 Acquired absence of other specified parts of digestive tract; Z79.899 Other long term (current) drug therapy
CPT/HCPCS: 11042; 87070; 87077; 87186; 96372; J0696; A6209; A4450

== ENCOUNTER → 2023-05-31 | Outpatient (CLI) | payer MEDICAID ==
[~2023-05-31] MED LIST changes: -LIDOCAINE HCL 4% LTA SOL 4 ML VIAL TP ONE; +LIDOCAINE HCL-MPF 1% 2ML VIAL IJ ONE
== END | disposition home or self-care (01) ==
LOC: WHH 10:19
PROVIDERS: ATTEND Nurse Practitioner Family
DX: E11.621 Type 2 diabetes mellitus with foot ulcer (principal); L97.512 Non-pressure chronic ulcer of other part of right foot with fat layer exposed; G61.0 Guillain-Barre syndrome; I39 Endocarditis and heart valve disorders in diseases classified elsewhere; I10 Essential (primary) hypertension; F41.9 Anxiety disorder, unspecified; E66.9 Obesity, unspecified; Z68.34 Body mass index [BMI] 34.0-34.9, adult; Z85.42 Personal history of malignant neoplasm of other parts of uterus; Z90.710 Acquired absence of both cervix and uterus; Z90.49 Acquired absence of other specified parts of digestive tract; Z79.899 Other long term (current) drug therapy
CPT/HCPCS: 99211; 96372; J0696; J3490; A6209; G0463

== ENCOUNTER → 2023-06-05 | Outpatient (CLI) | payer MEDICAID ==
[~2023-06-05] MED LIST changes: -CEFTRIAXONE 1G VIAL IM ONE; +LIDOCAINE HCL 4% LTA SOL 4 ML VIAL TP ONE; -LIDOCAINE HCL-MPF 1% 2ML VIAL IJ ONE
== END | disposition home or self-care (01) ==
LOC: WHH 10:16
PROVIDERS: ATTEND Nurse Practitioner Family
DX: E11.621 Type 2 diabetes mellitus with foot ulcer (principal); L97.512 Non-pressure chronic ulcer of other part of right foot with fat layer exposed; G61.0 Guillain-Barre syndrome; I39 Endocarditis and heart valve disorders in diseases classified elsewhere; I10 Essential (primary) hypertension; F41.9 Anxiety disorder, unspecified; E66.9 Obesity, unspecified; Z68.34 Body mass index [BMI] 34.0-34.9, adult; Z85.42 Personal history of malignant neoplasm of other parts of uterus; Z90.710 Acquired absence of both cervix and uterus; Z79.4 Long term (current) use of insulin; Z90.49 Acquired absence of other specified parts of digestive tract; Z79.899 Other long term (current) drug therapy
CPT/HCPCS: 11042; A6209

== ENCOUNTER → 2023-06-14 | Outpatient (CLI) | payer MEDICAID | END | disposition home or self-care (01) | LOC: WHH 10:57 | PROVIDERS: ATTEND Nurse Practitioner Family | DX: E11.621 Type 2 diabetes mellitus with foot ulcer (principal); L97.512 Non-pressure chronic ulcer of other part of right foot with fat layer exposed; G61.0 Guillain-Barre syndrome; I39 Endocarditis and heart valve disorders in diseases classified elsewhere; I10 Essential (primary) hypertension; F41.9 Anxiety disorder, unspecified; E66.9 Obesity, unspecified; Z68.34 Body mass index [BMI] 34.0-34.9, adult; Z85.42 Personal history of malignant neoplasm of other parts of uterus; Z90.710 Acquired absence of both cervix and uterus; Z79.4 Long term (current) use of insulin; Z90.49 Acquired absence of other specified parts of digestive tract; Z79.899 Other long term (current) drug therapy | CPT/HCPCS: 11042; A6248; A6209; A6207; A6022 ==

== ENCOUNTER → 2023-06-21 | Outpatient (CLI) | payer MEDICAID | END | disposition home or self-care (01) | LOC: WHH 10:28 | PROVIDERS: ATTEND Nurse Practitioner Family | DX: E11.621 Type 2 diabetes mellitus with foot ulcer (principal); L97.512 Non-pressure chronic ulcer of other part of right foot with fat layer exposed; G61.0 Guillain-Barre syndrome; I39 Endocarditis and heart valve disorders in diseases classified elsewhere; I10 Essential (primary) hypertension; F41.9 Anxiety disorder, unspecified; E66.9 Obesity, unspecified; Z68.34 Body mass index [BMI] 34.0-34.9, adult; Z85.42 Personal history of malignant neoplasm of other parts of uterus; Z90.710 Acquired absence of both cervix and uterus; Z79.4 Long term (current) use of insulin; Z90.49 Acquired absence of other specified parts of digestive tract; Z79.899 Other long term (current) drug therapy | CPT/HCPCS: 11042; A6209; A6207; A6022 ==

== ENCOUNTER → 2023-06-28 | Outpatient (CLI) | payer MEDICAID | END | disposition home or self-care (01) | LOC: WHH 10:31 | PROVIDERS: ATTEND Nurse Practitioner Family | DX: E11.621 Type 2 diabetes mellitus with foot ulcer (principal); L97.512 Non-pressure chronic ulcer of other part of right foot with fat layer exposed; G61.0 Guillain-Barre syndrome; I10 Essential (primary) hypertension; F41.9 Anxiety disorder, unspecified; E66.9 Obesity, unspecified; Z68.34 Body mass index [BMI] 34.0-34.9, adult; Z85.42 Personal history of malignant neoplasm of other parts of uterus; Z90.710 Acquired absence of both cervix and uterus; Z79.4 Long term (current) use of insulin; Z90.49 Acquired absence of other specified parts of digestive tract; Z79.899 Other long term (current) drug therapy | CPT/HCPCS: 11042; A6022; A4450 ==

== ENCOUNTER → 2023-07-12 | Outpatient (CLI) | payer MEDICAID | END | disposition home or self-care (01) | LOC: WHH 11:08 | PROVIDERS: ATTEND Nurse Practitioner Family | DX: E11.621 Type 2 diabetes mellitus with foot ulcer (principal); L97.512 Non-pressure chronic ulcer of other part of right foot with fat layer exposed; G61.0 Guillain-Barre syndrome; I10 Essential (primary) hypertension; I39 Endocarditis and heart valve disorders in diseases classified elsewhere; E66.9 Obesity, unspecified; F41.9 Anxiety disorder, unspecified; Z68.34 Body mass index [BMI] 34.0-34.9, adult; Z85.42 Personal history of malignant neoplasm of other parts of uterus; Z90.710 Acquired absence of both cervix and uterus; Z79.4 Long term (current) use of insulin; Z90.49 Acquired absence of other specified parts of digestive tract; Z79.899 Other long term (current) drug therapy | CPT/HCPCS: 11042; A6022 ==

== ENCOUNTER → 2023-07-19 | Outpatient (CLI) | payer MEDICAID | END | disposition home or self-care (01) | LOC: WHH 11:07 | PROVIDERS: ATTEND Nurse Practitioner Family | DX: E11.621 Type 2 diabetes mellitus with foot ulcer (principal); L97.415 Non-pressure chronic ulcer of right heel and midfoot with muscle involvement without evidence of necrosis; L97.512 Non-pressure chronic ulcer of other part of right foot with fat layer exposed; G61.0 Guillain-Barre syndrome; I39 Endocarditis and heart valve disorders in diseases classified elsewhere; I10 Essential (primary) hypertension; E66.9 Obesity, unspecified; F41.9 Anxiety disorder, unspecified; Z68.34 Body mass index [BMI] 34.0-34.9, adult; Z85.42 Personal history of malignant neoplasm of other parts of uterus; Z90.710 Acquired absence of both cervix and uterus; Z79.4 Long term (current) use of insulin; Z90.49 Acquired absence of other specified parts of digestive tract; Z79.899 Other long term (current) drug therapy | CPT/HCPCS: 11042; A6022; A6196 ==

== ENCOUNTER → 2023-07-26 | Outpatient (CLI) | payer MEDICAID | END | disposition home or self-care (01) | LOC: WHH 11:28 | PROVIDERS: ATTEND Nurse Practitioner Family | DX: E11.621 Type 2 diabetes mellitus with foot ulcer (principal); L97.415 Non-pressure chronic ulcer of right heel and midfoot with muscle involvement without evidence of necrosis; L97.512 Non-pressure chronic ulcer of other part of right foot with fat layer exposed; G61.0 Guillain-Barre syndrome; I39 Endocarditis and heart valve disorders in diseases classified elsewhere; I10 Essential (primary) hypertension; E66.9 Obesity, unspecified; F41.9 Anxiety disorder, unspecified; Z68.34 Body mass index [BMI] 34.0-34.9, adult; Z85.42 Personal history of malignant neoplasm of other parts of uterus; Z90.710 Acquired absence of both cervix and uterus; Z79.4 Long term (current) use of insulin; Z90.49 Acquired absence of other specified parts of digestive tract; Z79.899 Other long term (current) drug therapy | CPT/HCPCS: 11042; 73630; A6022; A6196; A6197; A4450 ==

== ENCOUNTER → 2023-08-14 | Outpatient (CLI) | payer MEDICAID ==
[~2023-08-14] MED LIST changes: -LIDOCAINE HCL 4% LTA SOL 4 ML VIAL TP ONE
== END | disposition home or self-care (01) ==
LOC: WHH 11:02
PROVIDERS: ATTEND Nurse Practitioner Family
DX: E11.621 Type 2 diabetes mellitus with foot ulcer (principal); L97.512 Non-pressure chronic ulcer of other part of right foot with fat layer exposed; G61.0 Guillain-Barre syndrome; I39 Endocarditis and heart valve disorders in diseases classified elsewhere; I10 Essential (primary) hypertension; M79.671 Pain in right foot; E66.9 Obesity, unspecified; F41.9 Anxiety disorder, unspecified; Z68.34 Body mass index [BMI] 34.0-34.9, adult; Z85.42 Personal history of malignant neoplasm of other parts of uterus; Z90.710 Acquired absence of both cervix and uterus; Z79.4 Long term (current) use of insulin; Z90.49 Acquired absence of other specified parts of digestive tract; Z79.899 Other long term (current) drug therapy
CPT/HCPCS: 11042; 87070; 87077; 87186; A6022; A6197

== ENCOUNTER → 2023-08-21 | Outpatient (CLI) | payer MEDICAID ==
[~2023-08-21] MED LIST changes: +LIDOCAINE HCL 4% LTA SOL 4 ML VIAL TP ONE
== END | disposition home or self-care (01) ==
LOC: WHH 10:55
PROVIDERS: ATTEND Nurse Practitioner Family
DX: E11.621 Type 2 diabetes mellitus with foot ulcer (principal); L97.512 Non-pressure chronic ulcer of other part of right foot with fat layer exposed; G61.0 Guillain-Barre syndrome; I39 Endocarditis and heart valve disorders in diseases classified elsewhere; I10 Essential (primary) hypertension; M79.671 Pain in right foot; E66.9 Obesity, unspecified; F41.9 Anxiety disorder, unspecified; Z68.34 Body mass index [BMI] 34.0-34.9, adult; Z85.42 Personal history of malignant neoplasm of other parts of uterus; Z90.710 Acquired absence of both cervix and uterus; Z79.4 Long term (current) use of insulin; Z90.49 Acquired absence of other specified parts of digestive tract; Z79.899 Other long term (current) drug therapy
CPT/HCPCS: 11042; A6022; A6196

== ENCOUNTER → 2023-08-23 | Outpatient (CLI) | payer MEDICAID ==
[~2023-08-23] MED LIST changes: -LIDOCAINE HCL 4% LTA SOL 4 ML VIAL TP ONE
== END | disposition home or self-care (01) ==
LOC: RAH 09:00
PROVIDERS: ATTEND Nurse Practitioner Family
DX: M77.31 Calcaneal spur, right foot (principal); L97.512 Non-pressure chronic ulcer of other part of right foot with fat layer exposed
CPT/HCPCS: 73718

== ENCOUNTER → 2023-09-04 | Outpatient (CLI) | payer MEDICAID ==
[~2023-09-04] MED LIST changes: +LIDOCAINE HCL 4% LTA SOL 4 ML VIAL TP ONE
== END | disposition home or self-care (01) ==
LOC: WHH 10:05
PROVIDERS: ATTEND Nurse Practitioner Family
DX: E11.621 Type 2 diabetes mellitus with foot ulcer (principal); L97.512 Non-pressure chronic ulcer of other part of right foot with fat layer exposed; E11.69 Type 2 diabetes mellitus with other specified complication; M86.671 Other chronic osteomyelitis, right ankle and foot; I10 Essential (primary) hypertension; I39 Endocarditis and heart valve disorders in diseases classified elsewhere; G61.0 Guillain-Barre syndrome; E66.9 Obesity, unspecified; M79.671 Pain in right foot; F41.9 Anxiety disorder, unspecified; Z68.34 Body mass index [BMI] 34.0-34.9, adult; Z85.42 Personal history of malignant neoplasm of other parts of uterus; Z90.710 Acquired absence of both cervix and uterus; Z79.4 Long term (current) use of insulin; Z90.49 Acquired absence of other specified parts of digestive tract; Z79.899 Other long term (current) drug therapy
CPT/HCPCS: 99214; A6022; A6196

== ENCOUNTER → 2023-09-11 | Outpatient (CLI) | payer MEDICAID | END | disposition home or self-care (01) | LOC: WHH 09:46 | PROVIDERS: ATTEND Nurse Practitioner Family | DX: E11.621 Type 2 diabetes mellitus with foot ulcer (principal); L97.512 Non-pressure chronic ulcer of other part of right foot with fat layer exposed; E11.69 Type 2 diabetes mellitus with other specified complication; M86.671 Other chronic osteomyelitis, right ankle and foot; I10 Essential (primary) hypertension; I39 Endocarditis and heart valve disorders in diseases classified elsewhere; G61.0 Guillain-Barre syndrome; E66.9 Obesity, unspecified; M79.671 Pain in right foot; F41.9 Anxiety disorder, unspecified; Z68.34 Body mass index [BMI] 34.0-34.9, adult; Z85.42 Personal history of malignant neoplasm of other parts of uterus; Z90.710 Acquired absence of both cervix and uterus; Z79.4 Long term (current) use of insulin; Z90.49 Acquired absence of other specified parts of digestive tract; Z79.899 Other long term (current) drug therapy | CPT/HCPCS: 99214; A6022; A6196 ==

== ENCOUNTER → 2023-09-18 | Outpatient (CLI) | payer MEDICAID | END | disposition home or self-care (01) | LOC: WHH 10:33 | PROVIDERS: ATTEND Nurse Practitioner Family | DX: E11.621 Type 2 diabetes mellitus with foot ulcer (principal); L97.512 Non-pressure chronic ulcer of other part of right foot with fat layer exposed; E11.69 Type 2 diabetes mellitus with other specified complication; M86.671 Other chronic osteomyelitis, right ankle and foot; I10 Essential (primary) hypertension; I39 Endocarditis and heart valve disorders in diseases classified elsewhere; G61.0 Guillain-Barre syndrome; E66.9 Obesity, unspecified; M79.671 Pain in right foot; F41.9 Anxiety disorder, unspecified; Z68.34 Body mass index [BMI] 34.0-34.9, adult; Z85.42 Personal history of malignant neoplasm of other parts of uterus; Z90.710 Acquired absence of both cervix and uterus; Z79.4 Long term (current) use of insulin; Z90.49 Acquired absence of other specified parts of digestive tract; Z79.899 Other long term (current) drug therapy | CPT/HCPCS: 99214; A6207; A6022; A6196 ==

== ENCOUNTER → 2023-09-25 | Outpatient (CLI) | payer MEDICAID ==
[2023-09-25 12:01] LABS: BASOPHILS # (AUTO) 0.03 K/uL (0.00-0.20); BASOPHILS % (AUTO) 0.3 % (0.0-5.0); EOSINOPHILS # (AUTO) 0.07 K/uL (0.00-0.70); EOSINOPHILS % (AUTO) 0.7 % (0.0-8.0); HEMATOCRIT 30.8 % (36-48); IMMATURE GRANULOCYTE ABSOLUTE 0.05 K/uL (0-1); LYMPHOCYTES # (AUTO) 2.8 K/uL (1.0-4.8); LYMPHOCYTES % (AUTO) 28.7 % (21.0-51.0); MEAN CORPUSCULAR HEMOGLOBIN 30.2 pg (27.0-33.0); MEAN CORPUSCULAR HGB CONC 32.1 g/dL (32.0-36.0); MEAN CORPUSCULAR VOLUME 93.9 fL (79-99); MONOCYTES # (AUTO) 0.7 K/uL (0.1-1.0); MONOCYTES % (AUTO) 6.7 % (3.0-13.0); NEUTROPHILS # (AUTO) 6.2 K/uL (1.8-7.7); NEUTROPHILS % (AUTO) 63.1 % (40.0-77.0); PLATELET COUNT (AUTO) 149 K/uL (130-400); RED BLOOD CELL COUNT(AUTO) 3.28 MIL/uL (4.00-5.50); RED CELL DISTRIBUTION WIDTH 14.2 % (11.0-15.5); WHITE BLOOD COUNT (AUTO) 9.9 K/uL (4.8-10.8)
== END | disposition home or self-care (01) ==
LOC: WHH 10:49
PROVIDERS: ATTEND Nurse Practitioner Family
DX: E11.621 Type 2 diabetes mellitus with foot ulcer (principal); L97.512 Non-pressure chronic ulcer of other part of right foot with fat layer exposed; E11.69 Type 2 diabetes mellitus with other specified complication; M86.671 Other chronic osteomyelitis, right ankle and foot; I10 Essential (primary) hypertension; I39 Endocarditis and heart valve disorders in diseases classified elsewhere; G61.0 Guillain-Barre syndrome; E66.9 Obesity, unspecified; M79.671 Pain in right foot; F41.9 Anxiety disorder, unspecified; Z68.34 Body mass index [BMI] 34.0-34.9, adult; Z85.42 Personal history of malignant neoplasm of other parts of uterus; Z90.710 Acquired absence of both cervix and uterus; Z79.4 Long term (current) use of insulin; Z90.49 Acquired absence of other specified parts of digestive tract; Z79.899 Other long term (current) drug therapy
CPT/HCPCS: 85025; 36415; 99214; A6207; A4450

== ENCOUNTER → 2023-10-02 | Outpatient (CLI) | payer MEDICAID ==
[~2023-10-02] MED LIST changes: -LIDOCAINE HCL 4% LTA SOL 4 ML VIAL TP ONE
== END | disposition home or self-care (01) ==
LOC: WHH 10:38
PROVIDERS: ATTEND Nurse Practitioner Family
DX: E11.621 Type 2 diabetes mellitus with foot ulcer (principal); L97.512 Non-pressure chronic ulcer of other part of right foot with fat layer exposed; E11.69 Type 2 diabetes mellitus with other specified complication; M86.671 Other chronic osteomyelitis, right ankle and foot; I10 Essential (primary) hypertension; I39 Endocarditis and heart valve disorders in diseases classified elsewhere; G61.0 Guillain-Barre syndrome; E66.9 Obesity, unspecified; M79.671 Pain in right foot; F41.9 Anxiety disorder, unspecified; Z68.34 Body mass index [BMI] 34.0-34.9, adult; Z85.42 Personal history of malignant neoplasm of other parts of uterus; Z90.710 Acquired absence of both cervix and uterus; Z79.4 Long term (current) use of insulin; Z90.49 Acquired absence of other specified parts of digestive tract; Z79.899 Other long term (current) drug therapy
CPT/HCPCS: 99214